=== PATIENT | female | born 1955 | race Two or more races ===

== ENCOUNTER 2023-06-20 09:41 | Emergency (ER) | payer MEDICARE, OTHER ==
[~2023-06-20] VITALS: Ht 162.6 cm; Wt 135.1 kg
[2023-06-20 10:17] VITALS: RESP 16; TEMP 98.1
[2023-06-20] MEDS ORDERED: CEPH500C PO (10:30)
[2023-06-20 10:36] VITALS: BP 169/90; PULSE 70; O2SAT 99
== END 2023-06-20 10:46 | disposition home or self-care (01) ==
LOC: ER 09:41
DX: L91.8 Other hypertrophic disorders of the skin (principal); E11.9 Type 2 diabetes mellitus without complications; I10 Essential (primary) hypertension; Z98.890 Other specified postprocedural states

== ENCOUNTER 2024-01-29 08:42 | Inpatient (IN) | payer MEDICARE ==
[~2024-01-29] VITALS: Ht 162.6 cm; Wt 132.2 kg
[~2024-01-29 08:42] MED LIST: CEPH500C PO
[2024-01-29 09:09] VITALS: PULSE 85; RESP 18; O2SAT 98
[2024-01-29 09:46] LABS: Urine Bacteria NONE SEEN /hpf (None Seen); Urine Blood Negative /uL (Negative); Urine Clarity Clear (Clear); Urine Protein, UAD Negative (Negative); Urine Specific Gravity 1.007 (1.001-1.035); Urine Urobilinogen Normal (Negative); Urine WBC 3 /hpf (0 - 5)
[2024-01-29 09:49] LABS: Urine Color Straw (Yellow)
[2024-01-29] MEDS: amLODIPine BESYLATE 5 MG TAB PO ONE ×2 (09:49→10:21)
[2024-01-29 10:30] LABS: Basophils # (auto) 0.1 10 ^3/uL (0-0.2); Basophils % (auto) 0.7 % (0.0-2.0); Eosinophils # (auto) 0.1 10 ^3/uL (0-0.8); Eosinophils % (auto) 1.9 % (0.0-7.0); Hematocrit 38.5 % (36.0-46.0); Hemoglobin 12.8 g/dL (12.2-16.2); Lymphocytes # (auto) 2.5 10 ^3/uL (0.4-5.4); Lymphocytes % (auto) 33.6 % (10.0-50.0); Mean Corpuscular Hemoglobin 30.9 pg (28.0-32.0); Mean Corpuscular Hgb Conc. 33.3 g/dL (32.0-36.0); Mean Corpuscular Volume 92.6 fL (80.0-100.0); Monocytes # (auto) 0.6 10 ^3/uL (0-1.3); Monocytes % (auto) 7.6 % (0.0-12.0); Neutrophils # (auto) 4.2 10 ^3/uL (1.6-8.6); Neutrophils % (auto) 56.2 % (37.0-80.0); Nucleated Red Blood Cells % 0.3 %; Red Blood Cells 4.15 10^6/uL (4.0-5.20); Red Cell Distribution Width 12.8 % (11.8-14.3); White Blood Cell 7.6 10^3/uL (4.4-10.8)
[2024-01-29 10:54] LABS: Alkaline Phosphatase 86 U/L (46-116)
[2024-01-29 10:55] LABS: Alanine Aminotransferase 24 U/L (7-40); Albumin 4.5 g/dL (3.2-4.8); Anion Gap 7 (5-15); Aspartate Aminotransferase 23 U/L (13-40); BUN/Creatinine Ratio 24.6 (10.0-20.0); Bilirubin, Total 0.5 mg/dL (0.2-1.0); Blood Urea Nitrogen 16 mg/dL (9-23); Calcium 9.4 mg/dL (8.5-10.1); Carbon Dioxide 26 mmol/L (20-30); Chloride 106 mmol/L (98-107); Glucose 127 mg/dL (74-106); Potassium 3.8 mmol/L (3.5-5.1); Sodium 139 mmol/L (136-145); Total Protein 6.5 g/dL (5.7-8.2)
[2024-01-29] MEDS: MORPHINE SULFATE 4 MG/ML SYR/VIAL IV ONE (10:55)
[2024-01-29 11:32] LABS: Lipase 51 U/L (12-53)
[2024-01-29] MEDS ORDERED: DOCUSATE SOD 100 MG CAP PO PRN (14:30)
[2024-01-29] MEDS ORDERED: ONDANSETRON HCL 4 MG/2 ML VIAL IV PRN (14:30)
[2024-01-29] MEDS: hydrALAZINE HCL 20 MG/ML VL IV PRN (16:18)
[2024-01-29] MEDS: cefTRIAXone 1GM/50ML D5W 50 ML IV ONE (16:19)
[2024-01-29 16:40] VITALS: BP 170/90; PULSE 73; RESP 18; TEMP 98.2; O2SAT 95
[2024-01-29] MEDS: SODIUM CHLORIDE 0.9% 1,000 ML IV SCH (16:45)
[2024-01-29 17:00] VITALS: BP 170/90; PULSE 73; RESP 18; TEMP 98.2; O2SAT 95
[2024-01-29] MEDS ORDERED: METF-371 PO (17:45)
[2024-01-29] MEDS ORDERED: AMLO1TAB22 PO (17:46)
[2024-01-29 20:30] VITALS: PULSE 63
[2024-01-29] MEDS: MORPHINE SULFATE INJ 2 MG/ml SYRG IV PRN (20:59)
[2024-01-29 21:05] VITALS: BP 142/81; PULSE 71; RESP 22; TEMP 98; O2SAT 93
[2024-01-30] VITALS (7 sets, daily range): BP systolic 114–171; BP diastolic 60–94; PULSE 62–71; RESP 16–20; TEMP 97.6–98.3; O2SAT 94–96
[2024-01-30 06:39] LABS: Basophils # (auto) 0 10 ^3/uL (0-0.2); Basophils % (auto) 0.5 % (0.0-2.0); Eosinophils # (auto) 0.1 10 ^3/uL (0-0.8); Eosinophils % (auto) 1.8 % (0.0-7.0); Hematocrit 35.9 % (36.0-46.0); Lymphocytes # (auto) 2.4 10 ^3/uL (0.4-5.4); Lymphocytes % (auto) 32.2 % (10.0-50.0); Mean Corpuscular Hemoglobin 30.7 pg (28.0-32.0); Mean Corpuscular Hgb Conc. 33.5 g/dL (32.0-36.0); Mean Corpuscular Volume 91.7 fL (80.0-100.0); Monocytes # (auto) 0.6 10 ^3/uL (0-1.3); Monocytes % (auto) 8.1 % (0.0-12.0); Neutrophils # (auto) 4.3 10 ^3/uL (1.6-8.6); Neutrophils % (auto) 57.4 % (37.0-80.0); Nucleated Red Blood Cells % 0.2 %; Red Blood Cells 3.91 10^6/uL (4.0-5.20); Red Cell Distribution Width 12.8 % (11.8-14.3); White Blood Cell 7.5 10^3/uL (4.4-10.8)
[2024-01-30 06:56] LABS: Alanine Aminotransferase 16 U/L (7-40); Alkaline Phosphatase 67 U/L (46-116); Anion Gap 5 (5-15); Aspartate Aminotransferase 17 U/L (13-40); BUN/Creatinine Ratio 12.7 (10.0-20.0); Blood Urea Nitrogen 8 mg/dL (9-23); Calcium 9.2 mg/dL (8.5-10.1); Carbon Dioxide 29 mmol/L (20-30); Chloride 106 mmol/L (98-107); Glucose 132 mg/dL (74-106); Potassium 3.5 mmol/L (3.5-5.1); Sodium 140 mmol/L (136-145)
[2024-01-30 06:57] LABS: Bilirubin, Total 0.6 mg/dL (0.2-1.0)
[2024-01-30] MEDS: cefTRIAXone 1GM/50ML D5W 50 ML IV SCH (08:32)
[2024-01-30] MEDS: ENOXAPARIN SOD 40 MG/0.4 ML SYRINGE SC SCH (09:32)
[2024-01-31 01:00] VITALS: BP 164/84; PULSE 69; RESP 20; TEMP 98; O2SAT 96
[2024-01-31] MEDS: HYDROcodone-ACET 5/325MG TAB PO PRN (04:50)
[2024-01-31 05:00] VITALS: BP 131/72; PULSE 68; RESP 20; TEMP 98.2; O2SAT 94
[2024-01-31 08:00] VITALS: PULSE 68; RESP 20
[2024-01-31 09:00] VITALS: BP 157/96; PULSE 72; RESP 20; TEMP 98.6; O2SAT 92
[2024-01-31] MEDS ORDERED: CIPR-173 PO (10:17)
[2024-01-31 10:22] VITALS: BP 169/94; TEMP 37
[2024-02-02 08:48] LABS: Hepatitis B Surface Antigen Negative (Negative)
[2024-02-02 09:09] LABS: Hepatitis C Antibody Negative (Negative)
== END 2024-01-31 10:38 | disposition home or self-care (01) | DRG 760 ==
LOC: ER 08:42 → OVERFLOW 14:46 → WEST WING 16:40
PROVIDERS: ADMIT Nurse Practitioner Family; ATTEND Family Medicine
DX: N83.201 Unspecified ovarian cyst, right side (principal); I16.1 Hypertensive emergency; N30.00 Acute cystitis without hematuria; E03.9 Hypothyroidism, unspecified; I10 Essential (primary) hypertension; Z80.41 Family history of malignant neoplasm of ovary; Z85.43 Personal history of malignant neoplasm of ovary; Z79.899 Other long term (current) drug therapy; Z91.148 Patient's other noncompliance with medication regimen for other reason; Z63.4 Disappearance and death of family member; Z79.2 Long term (current) use of antibiotics; E11.65 Type 2 diabetes mellitus with hyperglycemia
CPT/HCPCS: 36415; 74176; 76830; 76856; 80053; 81001; 83690; 84484; 85025; 86304; 86803; 87086; 87340; 93005; 96365; 96375; G0378